=== PATIENT | male | born 1940 | race African-American/Black ===

== ENCOUNTER 2018-01-31 13:31 | Inpatient (IN) | payer MEDICARE, OTHER ==
[~2018-01-31] VITALS: Ht 180.3 cm; Wt 64.9 kg
[2018-01-31] MEDS ORDERED: IPRATROPIUM BROMIDE (0.02%) 0.5MG/2.5ML NEB HHN STA (13:43)
[2018-01-31] MEDS ORDERED: METHYLPREDNISOLONE SOD SUCC 125 MG/2 ML VIAL IV STA (13:43)
[2018-01-31] MEDS ORDERED: MAGNESIUM 2 G PREMIX 50 ML IV ONE (13:45)
[2018-01-31] MEDS: ALBUTEROL (0.083%) 2.5MG/3ML NEB HHN SCH ×4 (14:00→14:54)
[2018-01-31 14:30] LABS: BASOPHILS % 0.3 % (0.0-2.0); EOSINOPHILS % 0.2 % (0.0-5.0); LYMPHOCYTES % 10.1 % (20.0-50.0); MEAN CORPUSCULAR HEMOGLOBIN 24.3 pg (28.0-32.0); MEAN CORPUSCULAR VOLUME 79.3 fL (80.0-94.0); MEAN PLATELET VOLUME 6.8 fl (7.4-10.4); MONOCYTES % 11.3 % (2.0-8.0); NEUTROPHILS % 78.1 % (40.0-76.0); PLATELET 332 x1000/uL (130-400); RED BLOOD CELL COUNT 1.85 mill/uL (4.7-6.1); RED CELL DISTRIBUTION WIDTH 18.7 % (11.6-14.6)
[2018-01-31 14:36] LABS: PROTHROMBIN TIME 10.7 sec (9.4-11.6)
[2018-01-31 14:37] LABS: HEMOGLOBIN. 4.5 g/dL (14.0-18.0)
[2018-01-31 14:38] LABS: HEMATOCRIT. 14.7 % (42.0-52.0)
[2018-01-31 14:40] LABS: CHLORIDE 87 mEq/L (98-107)
[2018-01-31] MEDS ORDERED: SODIUM CHLORIDE 0.9% 1000ML BAG (SEPSIS BOLUS) IV ONE (15:00)
[2018-01-31 16:59] LABS: BG BILEVEL POS AIRWAY PRESSURE 15/5; BG DEOXYHEMOGLOBIN 0.3 % (0.0-5.0); BG FRACTION INSPIRED OXYGEN 50; BG HCO3 ACT 38.1 mmol/L (22.0-26.0); BG METHEMOGLOBIN 0.6 % (0.0-1.5); BG OXYGEN SATURATION 99.7 % (92.0-98.5); BG OXYHEMOGLOBIN 98.1 % (94.0-97.0); BG PCO2 67.1 mmHg (35.0-45.0); BG PH 7.372 (7.350-7.450); BG PO2 228.9 mmHg (75.0-100.0); BG SAMPLE SITE RIGHT RADIAL; BG TOTAL HEMOGLOBIN 5.1 g/dL (12.0-18.0); BG VENT MODE MASK - BIPAP; BG VENT RATE 14 set
[2018-01-31] MEDS ORDERED: MAGNESIUM/ALUMINUM HYDROXIDE/SIMETHICONE 30ML UDC PO PRN (17:00)
[2018-01-31] MEDS ORDERED: DIPHENHYDRAMINE 50MG/ML VIAL IV PRN (17:00)
[2018-01-31] MEDS ORDERED: LORAZEPAM 0.5MG TABLET PO PRN (17:00)
[2018-01-31] MEDS ORDERED: CLONIDINE 0.1MG TABLET PO PRN (17:00)
[2018-01-31] MEDS ORDERED: NITROGLYCERIN 0.4MG TABLET SL SL PRN (17:00)
[2018-01-31] MEDS ORDERED: DOCUSATE SODIUM 100MG CAPSULE PO PRN (17:00)
[2018-01-31] MEDS ORDERED: ONDANSETRON HCL 4MG/2ML VIAL IV PRN (17:00)
[2018-01-31] MEDS ORDERED: GUAIFENESIN 200MG/10ML SUGAR FREE UDC PO PRN (17:00)
[2018-01-31] MEDS ORDERED: ACETAMINOPHEN 325MG TABLET PO PRN (17:00)
[2018-01-31] MEDS ORDERED: VANCOMYCIN 1 G PREMIX 200 ML IV ONE (17:15)
[2018-01-31] MEDS ORDERED: MEROPENEM 1,000 MG in SODIUM CHLORIDE 0.9% 100 ML IV ONE (17:15)
[2018-01-31] MEDS ORDERED: TRAMADOL 50MG TABLET PO PRN (17:30)
[2018-01-31] MEDS ORDERED: MORPHINE SULFATE 4 MG/ML CPJ (NOT FOR IM USE) IV PRN (17:30)
[2018-01-31 18:42] LABS: TOTAL IRON BINDING CAPACITY 399 ug/dL (250-450)
[2018-01-31 19:17] LABS: FOLIC ACID (FOLATE) SERUM >20 ng/mL ng/mL (>5.38); VITAMIN B12 SERUM 512 pg/mL (211-911)
[2018-01-31] MEDS ORDERED: IPRATROPIUM/ALBUTEROL 0.5-3(2.5)MG/3ML NEB HHN SCH (20:45)
[2018-01-31] MEDS ORDERED: PANTOPRAZOLE SODIUM 40 MG/VIAL IV SCH (21:00)
[2018-01-31] MEDS ORDERED: NA PHOS,M-B/NA PHOS,DI-BA ENEMA 118ML PR PRN (21:00)
[2018-01-31] MEDS ORDERED: ZOLPIDEM TARTRATE 5MG TABLET PO PRN (21:00)
[2018-01-31] MEDS ORDERED: LEVOFLOXACIN 500MG PREMIX 100 ML IV SCH (21:00)
[2018-01-31] MEDS: IPRATROPIUM/ALBUTEROL 0.5-3(2.5)MG/3ML NEB INH PRN (21:50)
[2018-02-01] VITALS (15 sets, daily range): BP systolic 114–153; BP diastolic 45–87
[2018-02-01] MEDS: IPRATROPIUM/ALBUTEROL 0.5-3(2.5)MG/3ML NEB INH PRN ×2 (01:45→03:50)
[2018-02-01] MEDS ORDERED: PANTOPRAZOLE SODIUM 40 MG/VIAL IV SCH (09:00)
[2018-02-01 10:35] LABS: BG BASE EXCESS 5.7 mmol/L (-2.0-2.0); BG BILEVEL POS AIRWAY PRESSURE ST=15/5; BG CARBOXYHEMOGLOBIN 0.7 % (0.5-1.5); BG DEOXYHEMOGLOBIN 0.4 % (0.0-5.0); BG FRACTION INSPIRED OXYGEN 50; BG HCO3 ACT 33.1 mmol/L (22.0-26.0); BG METHEMOGLOBIN 0.3 % (0.0-1.5); BG OXYGEN SATURATION 99.6 % (92.0-98.5); BG OXYHEMOGLOBIN 98.6 % (94.0-97.0); BG PH 7.287 (7.350-7.450); BG PO2 252.6 mmHg (75.0-100.0); BG PRESSURE SUPPORT 10; BG SAMPLE SITE RIGHT BRACHIAL; BG TOTAL HEMOGLOBIN 7.1 g/dL (12.0-18.0); BG VENT MODE MASK - BIPAP; BG VENT RATE 14 set
[2018-02-01] MEDS ORDERED: IPRATROPIUM/ALBUTEROL 0.5-3(2.5)MG/3ML NEB HHN PRN (10:45)
[2018-02-01] MEDS ORDERED: BUDESONIDE 0.5MG/2ML NEB HHN SCH (11:00)
[2018-02-01] MEDS ORDERED: MOME13HF2 INH (11:12)
[2018-02-01] MEDS ORDERED: ALBU18HF2 IH (11:12)
[2018-02-01] MEDS ORDERED: TIOT18CA3 INH (11:12)
[2018-02-01] MEDS: METHYLPREDNISOLONE SOD SUCC 40 MG/ML VIAL IV SCH ×2 (11:40→18:28)
[2018-02-01] MEDS ORDERED: MULTIVITAMINS,THER W-MINERALS TABLET PO SCH (12:00)
[2018-02-01] MEDS ORDERED: CEFTRIAXONE 1 G PREMIX 50 ML IV SCH (12:00)
[2018-02-01] MEDS ORDERED: FOLIC ACID 1MG TABLET PO SCH (12:00)
[2018-02-01] MEDS ORDERED: THIAMINE HCL 100MG TABLET PO SCH (12:00)
[2018-02-01] MEDS: IPRATROPIUM/ALBUTEROL 0.5-3(2.5)MG/3ML NEB HHN SCH ×3 (12:30→21:16)
[2018-02-01 12:31] LABS: MEAN CORPUSCULAR HEMOGLOBIN 26.7 pg (28.0-32.0); MEAN CORPUSCULAR VOLUME 81.8 fL (80.0-94.0); MEAN PLATELET VOLUME 6.6 fl (7.4-10.4); PLATELET 276 x1000/uL (130-400); RED BLOOD CELL COUNT 2.56 mill/uL (4.7-6.1); RED CELL DISTRIBUTION WIDTH 17.6 % (11.6-14.6)
[2018-02-01 12:53] LABS: CHLORIDE 93 mEq/L (98-107); HEMOGLOBIN. 6.8 g/dL (14.0-18.0)
[2018-02-01 14:51] LABS: PLATELET ESTIMATE NORMAL
[2018-02-01] MEDS ORDERED: PNEUMOCOCCAL 23-VAL P-SAC VAC 0.5 ML IM ONE (18:00)
[2018-02-01] MEDS ORDERED: PANTOPRAZOLE 40MG DR TABLET PO SCH (21:00)
[2018-02-01] MEDS: METOPROLOL TARTRATE 25MG TABLET PO SCH ×2 (21:15→21:26)
[2018-02-01] MEDS ORDERED: LEVOFLOXACIN 500MG PREMIX 100 ML IV SCH (22:00)
[2018-02-01 22:08] LABS: HEMATOCRIT 22.9 % (42.0-52.0); HEMOGLOBIN 7.7 g/dL (14.0-18.0)
[2018-02-02 13:59] LABS: HEMATOCRIT. 20.9 % (42.0-52.0)
== END 2018-02-01 22:25 | disposition short-term general hospital (02) | DRG 871 ==
LOC: ER 14:43 → 5EST 14:59 → EDBEDREQSVC 15:01 → EDBEDREQTM 15:01 → EDBEDREQ 15:01 → ENRESERV 02-01 07:48
PROVIDERS: ADMIT Internal Medicine; ATTEND Internal Medicine
PROC: 30233N1 Transfusion of Nonautologous Red Blood Cells into Peripheral Vein, Percutaneous Approach (ICD-10-PCS; principal; 2018-01-31)
PROC: 5A09357 Assistance with Respiratory Ventilation, Less than 24 Consecutive Hours, Continuous Positive Airway Pressure (ICD-10-PCS; 2018-01-31)
DX: A41.9 Sepsis, unspecified organism (principal); J96.02 Acute respiratory failure with hypercapnia; J96.01 Acute respiratory failure with hypoxia; G92 Toxic encephalopathy; E87.1 Hypo-osmolality and hyponatremia; J44.1 Chronic obstructive pulmonary disease with (acute) exacerbation; D64.9 Anemia, unspecified; F10.10 Alcohol abuse, uncomplicated; I25.2 Old myocardial infarction; Z86.73 Personal history of transient ischemic attack (TIA), and cerebral infarction without residual deficits; Z87.891 Personal history of nicotine dependence; Z99.81 Dependence on supplemental oxygen
CPT/HCPCS: 36415; 36430; 36600; 70450; 71045; 80048; 80053; 82375; 82607; 82746; 82805; 83540; 83550; 83605; 83690; 83880; 84484; 85014; 85018; 85025; 85610; 86850; 86900; 86920; 87040; 87086; 90732; 93005; 93970; 96365; 96366; 96367; 96368; 96376; 99291; J0696; J1956; J2185; J2920; J2930; J3370; J3475; J7030; J7050; J7611; J7620; J7626; P9016; A4315

== ENCOUNTER 2019-04-03 21:59 | Inpatient (IN) | payer OTHER ==
[~2019-04-03] VITALS: Ht 175.3 cm; Wt 66.3 kg
[2019-04-03] MEDS ORDERED: METHYLPREDNISOLONE SOD SUCC 125 MG/2 ML VIAL IV STA (22:39)
[2019-04-03] MEDS ORDERED: IPRATROPIUM BROMIDE (0.02%) 0.5MG/2.5ML NEB HHN STA (22:39)
[2019-04-03] MEDS ORDERED: ONDANSETRON HCL 4MG/2ML INJ IV STA (22:39)
[2019-04-03] MEDS: ALBUTEROL (0.083%) 2.5MG/3ML NEB HHN SCH ×2 (23:00→23:25)
[2019-04-03 23:07] LABS: HEMATOCRIT. 35.7 % (42.0-52.0); HEMOGLOBIN. 12.1 g/dL (14.0-18.0); MEAN CORPUSCULAR HEMOGLOBIN 31.7 pg (28.0-32.0); MEAN CORPUSCULAR VOLUME 93.5 fL (80.0-94.0); MEAN PLATELET VOLUME 7.1 fl (7.4-10.4); PLATELET 287 x1000/uL (130-400); RED BLOOD CELL COUNT 3.82 mill/uL (4.7-6.1); RED CELL DISTRIBUTION WIDTH 13.7 % (11.6-14.6)
[2019-04-03 23:08] LABS: BG BASE EXCESS 9.4 mmol/L (-2.0-2.0); BG CARBOXYHEMOGLOBIN 1.1 % (0.5-1.5); BG DEOXYHEMOGLOBIN 0.2 % (0.0-5.0); BG FRACTION INSPIRED OXYGEN 100; BG HCO3 ACT 36.7 mmol/L (22.0-26.0); BG METHEMOGLOBIN 0.4 % (0.0-1.5); BG OXYGEN SATURATION 99.8 % (92.0-98.5); BG OXYHEMOGLOBIN 98.3 % (94.0-97.0); BG PCO2 63.4 mmHg (35.0-45.0); BG PH 7.381 (7.350-7.450); BG SAMPLE SITE RIGHT RADIAL; BG TOTAL HEMOGLOBIN 12.8 g/dL (12.0-18.0); BG VENT MODE MASK - NRB
[2019-04-03 23:12] LABS: CHLORIDE 83 mEq/L (98-107)
[2019-04-03] MEDS ORDERED: SODIUM CHLORIDE 0.9% 1,000 ML IV ONE (23:13)
[2019-04-03 23:19] LABS: PLATELET ESTIMATE NORMAL
[2019-04-03] MEDS ORDERED: AZITHROMYCIN 500 MG in DEXT 5% WATER 250 ML IV ONE (23:45)
[2019-04-03] MEDS ORDERED: CEFTRIAXONE 1 G PREMIX 50 ML IV ONE (23:45)
[2019-04-04] VITALS (13 sets, daily range): BP systolic 108–147; BP diastolic 56–99
[2019-04-04] MEDS ORDERED: SODIUM CHLORIDE 0.9% 1,000 ML IV SCH (00:12)
[2019-04-04] MEDS ORDERED: SODIUM CHLORIDE 0.9% 1,000 ML IV NR (01:47)
[2019-04-04] MEDS ORDERED: NA PHOS,M-B/NA PHOS,DI-BA ENEMA 118ML PR PRN (06:30)
[2019-04-04] MEDS ORDERED: MAGNESIUM/ALUMINUM HYDROXIDE/SIMETHICONE 30ML UDC PO PRN (06:30)
[2019-04-04] MEDS ORDERED: HYDROCODONE/ACETAMINOPHEN 10/325MG TABLET PO PRN (06:30)
[2019-04-04] MEDS ORDERED: CLONIDINE 0.1MG TABLET PO PRN (06:30)
[2019-04-04] MEDS ORDERED: ACETAMINOPHEN 325MG TABLET PO PRN (06:30)
[2019-04-04] MEDS ORDERED: HYDROMORPHONE HCL/PF 2MG/ML CPJ IV PRN (06:30)
[2019-04-04] MEDS ORDERED: DIPHENHYDRAMINE 50MG/ML VIAL IV PRN (06:30)
[2019-04-04] MEDS ORDERED: HYDRALAZINE 20MG/ML VIAL IV PRN (06:30)
[2019-04-04] MEDS ORDERED: ONDANSETRON HCL 4MG/2ML INJ IV PRN (06:30)
[2019-04-04] MEDS ORDERED: IPRATROPIUM/ALBUTEROL 0.5-3(2.5)MG/3ML NEB INH PRN ×2 (06:30)
[2019-04-04] MEDS ORDERED: LORAZEPAM 2MG/ML CPJ IV PRN (06:30)
[2019-04-04] MEDS ORDERED: DOCUSATE SODIUM 100MG CAPSULE PO PRN (06:30)
[2019-04-04] MEDS ORDERED: DILTIAZEM HCL 125 MG in DEXT 5% WATER 100 ML IV SCH (07:58)
[2019-04-04] MEDS ORDERED: DIGOXIN 500MCG/2ML AMP IV SCH (08:00)
[2019-04-04] MEDS ORDERED: IPRATROPIUM/ALBUTEROL 0.5-3(2.5)MG/3ML NEB INH SCH (08:00)
[2019-04-04] MEDS ORDERED: ENOXAPARIN 40MG/0.4ML SYR SUBCUT SCH (09:00)
[2019-04-04 09:30] LABS: HEMATOCRIT. 33.9 % (42.0-52.0); HEMOGLOBIN. 11.2 g/dL (14.0-18.0); MEAN CORPUSCULAR HEMOGLOBIN 31.2 pg (28.0-32.0); MEAN CORPUSCULAR VOLUME 93.9 fL (80.0-94.0); MEAN PLATELET VOLUME 7.4 fl (7.4-10.4); PLATELET 265 x1000/uL (130-400); RED BLOOD CELL COUNT 3.61 mill/uL (4.7-6.1); RED CELL DISTRIBUTION WIDTH 13.4 % (11.6-14.6)
[2019-04-04 09:43] LABS: CHLORIDE 90 mEq/L (98-107)
[2019-04-04 09:49] LABS: BG BASE EXCESS 2.4 mmol/L (-2.0-2.0); BG CARBOXYHEMOGLOBIN 0.7 % (0.5-1.5); BG DEOXYHEMOGLOBIN 3.2 % (0.0-5.0); BG FRACTION INSPIRED OXYGEN 32; BG HCO3 ACT 29.3 mmol/L (22.0-26.0); BG METHEMOGLOBIN 0.3 % (0.0-1.5); BG OXYGEN SATURATION 96.8 % (92.0-98.5); BG OXYHEMOGLOBIN 95.8 % (94.0-97.0); BG PCO2 56.2 mmHg (35.0-45.0); BG PH 7.335 (7.350-7.450); BG SAMPLE SITE RIGHT RADIAL; BG VENT MODE NASAL CANNULA
[2019-04-04 09:53] LABS: LDL CHOLESTEROL 24 mg/dL (5-100)
[2019-04-04] MEDS: ASPIRIN 81MG TABLET PO SCH (09:54)
[2019-04-04 09:56] LABS: T4 FREE 1.36 ng/dL (0.76-1.46)
[2019-04-04] MEDS: DILTIAZEM HCL 125 MG in DEXTROSE 5% WATER 125 ML IV SCH (09:56)
[2019-04-04] MEDS: ENOXAPARIN 80MG/0.8ML SYR SUBCUT SCH ×2 (09:56→21:22)
[2019-04-04 09:57] LABS: HDL CHOLESTEROL 86 mg/dL (40-59)
[2019-04-04] MEDS: LEVOFLOXACIN 500MG PREMIX 100 ML IV SCH (09:57)
[2019-04-04 10:36] LABS: PLATELET ESTIMATE NORMAL
[2019-04-04] MEDS ORDERED: FLUT1DIS2 INH (12:25)
[2019-04-04] MEDS ORDERED: METO25TA6 MT (12:25)
[2019-04-04] MEDS ORDERED: ALBU18HF2 IH (12:25)
[2019-04-04] MEDS ORDERED: ALBU4TAB6 MT (12:25)
[2019-04-04] MEDS ORDERED: TIOT18CA3 INH (12:25)
[2019-04-04] MEDS ORDERED: BENZONATATE 100MG CAPSULE PO PRN (13:30)
[2019-04-04] MEDS: PREDNISONE 20MG TABLET PO SCH (13:30)
[2019-04-04] MEDS: SODIUM CHLORIDE 0.9% INJ 3ML FLUSH IVF SCH ×2 (13:35→21:22)
[2019-04-04] MEDS: BUDESONIDE 0.5MG/2ML NEB HHN SCH (15:21)
[2019-04-04] MEDS: IPRATROPIUM BROMIDE (0.02%) 0.5MG/2.5ML NEB HHN SCH ×2 (15:22→20:49)
[2019-04-04] MEDS: GUAIFENESIN 200MG/10ML SUGAR FREE UDC PO PRN (18:53)
[2019-04-05] VITALS (12 sets, daily range): BP systolic 121–163; BP diastolic 56–91
[2019-04-05] MEDS: BUDESONIDE 0.5MG/2ML NEB HHN SCH ×2 (00:34→08:16)
[2019-04-05] MEDS: IPRATROPIUM BROMIDE (0.02%) 0.5MG/2.5ML NEB HHN SCH ×5 (00:34→15:35)
[2019-04-05 05:05] LABS: CREATINE KINASE 73 IU/L (39-308); CREATINE KINASE MB FRACTION 3.8 ng/mL (0.5-3.6)
[2019-04-05] MEDS: SODIUM CHLORIDE 0.9% INJ 3ML FLUSH IVF SCH ×2 (06:03→14:00)
[2019-04-05] MEDS: GUAIFENESIN 200MG/10ML SUGAR FREE UDC PO PRN (06:47)
[2019-04-05] MEDS: DILTIAZEM HCL 125 MG in DEXTROSE 5% WATER 125 ML IV SCH (07:01)
[2019-04-05] MEDS: ASPIRIN 81MG TABLET PO SCH (08:31)
[2019-04-05] MEDS: PREDNISONE 20MG TABLET PO SCH (08:31)
[2019-04-05] MEDS: LEVOFLOXACIN 500MG PREMIX 100 ML IV SCH (08:31)
[2019-04-05] MEDS: ENOXAPARIN 80MG/0.8ML SYR SUBCUT SCH (08:32)
[2019-04-05] MEDS ORDERED: METOPROLOL TARTRATE 50MG TABLET PO SCH (09:00)
[2019-04-05 12:34] LABS: HEMATOCRIT. 33.1 % (42.0-52.0); HEMOGLOBIN. 10.9 g/dL (14.0-18.0); MEAN CORPUSCULAR VOLUME 94.6 fL (80.0-94.0); MEAN PLATELET VOLUME 7.1 fl (7.4-10.4); PLATELET 303 x1000/uL (130-400); RED CELL DISTRIBUTION WIDTH 13.4 % (11.6-14.6)
[2019-04-05 12:44] LABS: CHLORIDE 86 mEq/L (98-107)
[2019-04-05 13:09] LABS: PLATELET ESTIMATE NORMAL
== END 2019-04-05 20:22 | disposition short-term general hospital (02) | DRG 189 ==
LOC: ER 21:59 → 3WST 04-04 00:13 → EDBEDREQTM 04-04 00:29 → EDBEDREQSVC 04-04 00:29 → EDBEDREQ 04-04 00:29 → EDBEDREQDT 04-04 00:29 → ENRESERV 04-04 01:57
PROVIDERS: ADMIT Internal Medicine; ATTEND Internal Medicine
PROC: 5A09357 Assistance with Respiratory Ventilation, Less than 24 Consecutive Hours, Continuous Positive Airway Pressure (ICD-10-PCS; principal; 2019-04-04)
DX: J96.02 Acute respiratory failure with hypercapnia (principal); E87.1 Hypo-osmolality and hyponatremia; E87.2 Acidosis; J44.1 Chronic obstructive pulmonary disease with (acute) exacerbation; R65.10 Systemic inflammatory response syndrome (SIRS) of non-infectious origin without acute organ dysfunction; I48.91 Unspecified atrial fibrillation; F17.210 Nicotine dependence, cigarettes, uncomplicated; I25.10 Atherosclerotic heart disease of native coronary artery without angina pectoris; Z79.899 Other long term (current) drug therapy; I25.2 Old myocardial infarction
CPT/HCPCS: 36415; 36600; 71045; 78580; 80048; 80061; 82375; 82550; 82553; 82805; 82962; 83036; 83605; 83880; 84439; 84443; 84484; 85379; 93005; 93306; 94640; 94660; 96365; 96375; 99291; J0456; J0696; J1160; J1650; J1956; J2405; J2930; J3490; J7030; J7040; J7060; J7512; J7611; J7626

== ENCOUNTER 2019-10-26 22:58 | Inpatient (IN) | payer OTHER ==
[~2019-10-26] VITALS: Ht 167.6 cm; Wt 90.3 kg
[~2019-10-26 22:58] MED LIST: ALBU18HF2 IH; ALBU4TAB6 MT; FLUT1DIS2 INH; METO25TA6 MT; TIOT18CA3 INH
[2019-10-26 23:19] LABS: BG BASE EXCESS 9.7 mmol/L (-2.0-2.0); BG CARBOXYHEMOGLOBIN 0.4 % (0.5-1.5); BG DEOXYHEMOGLOBIN 2.1 % (0.0-5.0); BG FRACTION INSPIRED OXYGEN 100; BG METHEMOGLOBIN 0.4 % (0.0-1.5); BG OXYGEN SATURATION 97.9 % (92.0-98.5); BG OXYHEMOGLOBIN 97.1 % (94.0-97.0); BG PCO2 152.3 mmHg (35.0-45.0); BG PH 7.069 (7.350-7.450); BG PO2 145.9 mmHg (75.0-100.0); BG SAMPLE SITE RIGHT RADIAL; BG TOTAL HEMOGLOBIN 9.5 g/dL (12.0-18.0); BG VENT MODE AMBU BAG
[2019-10-26 23:21] LABS: BASOPHILS % 0.5 % (0.0-2.0); EOSINOPHILS % 1.2 % (0.0-5.0); HEMATOCRIT. 27.5 % (42.0-52.0); HEMOGLOBIN. 8.4 g/dL (14.0-18.0); LYMPHOCYTES % 19.1 % (20.0-50.0); MEAN CORPUSCULAR VOLUME 88.2 fL (80.0-94.0); MONOCYTES % 10.9 % (2.0-8.0); NEUTROPHILS % 68.3 % (40.0-76.0); PLATELET 423 x1000/uL (130-400); RED BLOOD CELL COUNT 3.12 mill/uL (4.7-6.1); RED CELL DISTRIBUTION WIDTH 15.8 % (11.6-14.6)
[2019-10-26 23:23] LABS: CHLORIDE 85 mEq/L (98-107)
[2019-10-26 23:26] LABS: PROTHROMBIN TIME 9.9 sec (9.6-11.0)
[2019-10-26 23:27] LABS: ETHANOL BLOOD < 10 mg/dL
[2019-10-26] MEDS ORDERED: ALBUTEROL (0.083%) 2.5MG/3ML NEB HHN STA (23:36)
[2019-10-26] MEDS ORDERED: METHYLPREDNISOLONE SOD SUCC 125 MG/2 ML VIAL IV STA (23:36)
[2019-10-26] MEDS ORDERED: LORAZEPAM 2MG/ML CPJ IV ONE (23:45)
[2019-10-26] MEDS ORDERED: PROPOFOL 10MG/ML 100ML 100 ML IV SCH (23:45)
[2019-10-26 23:55] LABS: CLARITY URINE CLOUDY (CLEAR); COLOR URINE YELLOW (YELLOW); KETONES URINE NEGATIVE (NEGATIVE); LEUKOCYTE ESTERASE URINE NEGATIVE (NEGATIVE); NITRITE URINE NEGATIVE (NEGATIVE); OCCULT BLOOD URINE 1+ (NEGATIVE); PH URINE 5.5 (4.5-8.0); PROTEIN URINE 2+ (NEGATIVE); SPECIFIC GRAVITY URINE 1.016 (1.005-1.030); UROBILINOGEN URINE 0.2 E.U./dL (0.2-1.0)
[2019-10-27] VITALS (65 sets, daily range): BP systolic 84–135; BP diastolic 51–83
[2019-10-27 00:08] LABS: *AMPHETAMINES SCREEN URINE NEGATIVE (NEGATIVE); *BARBITURATES SCREEN URINE NEGATIVE (NEGATIVE); *BENZODIAZEPINES SCREEN URINE NEGATIVE (NEGATIVE); *COCAINE SCREEN URINE NEGATIVE (NEGATIVE); METHADONE URINE SCREEN NEGATIVE (NEGATIVE); OPIATES URINE SCREEN NEGATIVE (NEGATIVE)
[2019-10-27 00:09] LABS: CANNABINOID URINE SCREEN NEGATIVE (NEGATIVE); PHENCYCLIDINE URINE SCREEN NEGATIVE (NEGATIVE)
[2019-10-27] MEDS ORDERED: SODIUM CHLORIDE 0.9% 1,000 ML IV ONE (00:15)
[2019-10-27] MEDS ORDERED: MIDAZOLAM HCL 50 MG in DEXTROSE 5% WATER 40 ML IV ONE ×4 (00:15)
[2019-10-27] MEDS ORDERED: LORAZEPAM 2MG/ML CPJ IV ONE (00:15)
[2019-10-27] MEDS ORDERED: FENTANYL CITRATE/PF 500 MCG in SODIUM CHLORIDE 0.9% 40 ML IV PRN ×4 (00:15)
[2019-10-27] MEDS ORDERED: LEVOFLOXACIN 750MG PREMIX 150 ML IV ONE (01:00)
[2019-10-27] MEDS ORDERED: SODIUM CHLORIDE 0.9% 1000ML BAG (SEPSIS BOLUS) IV ONE (01:00)
[2019-10-27 01:55] LABS: BG CARBOXYHEMOGLOBIN 0.3 % (0.5-1.5); BG DEOXYHEMOGLOBIN 0.3 % (0.0-5.0); BG FRACTION INSPIRED OXYGEN 100; BG HCO3 ACT 37.1 mmol/L (22.0-26.0); BG METHEMOGLOBIN 0.1 % (0.0-1.5); BG OXYGEN SATURATION 99.7 % (92.0-98.5); BG OXYHEMOGLOBIN 99.3 % (94.0-97.0); BG PCO2 58.9 mmHg (35.0-45.0); BG PH 7.417 (7.350-7.450); BG PO2 294.3 mmHg (75.0-100.0); BG SAMPLE SITE LEFT RADIAL; BG TIDAL VOLUME(mL) 500 mL; BG VENT MODE VENT - A/C; BG VENT RATE 20 set
[2019-10-27] MEDS ORDERED: DIPHENHYDRAMINE 50MG/ML VIAL IV PRN (04:30)
[2019-10-27] MEDS ORDERED: LORAZEPAM 2MG/ML CPJ IV PRN (04:30)
[2019-10-27] MEDS ORDERED: ONDANSETRON HCL 4MG/2ML INJ IV PRN (04:30)
[2019-10-27] MEDS ORDERED: ACETAMINOPHEN 650MG SUPP PR PRN (04:30)
[2019-10-27] MEDS ORDERED: SODIUM CHLORIDE 0.9% 1,000 ML IV SCH (08:30)
[2019-10-27] MEDS: PROPOFOL 10MG/ML 100ML 100 ML IV PRN ×3 (08:53→22:26)
[2019-10-27 09:11] LABS: BG BASE EXCESS 8.9 mmol/L (-2.0-2.0); BG CARBOXYHEMOGLOBIN 0.2 % (0.5-1.5); BG DEOXYHEMOGLOBIN 0.2 % (0.0-5.0); BG FRACTION INSPIRED OXYGEN 70; BG HCO3 ACT 34.2 mmol/L (22.0-26.0); BG METHEMOGLOBIN 0.4 % (0.0-1.5); BG OXYGEN SATURATION 99.8 % (92.0-98.5); BG OXYHEMOGLOBIN 99.2 % (94.0-97.0); BG PCO2 52.3 mmHg (35.0-45.0); BG PH 7.434 (7.350-7.450); BG PO2 382.9 mmHg (75.0-100.0); BG SAMPLE SITE RIGHT RADIAL; BG TIDAL VOLUME(mL) 500 mL; BG TOTAL HEMOGLOBIN 8.6 g/dL (12.0-18.0); BG VENT MODE VENT - A/C; BG VENT RATE 18 set
[2019-10-27] MEDS: METHYLPREDNISOLONE SOD SUCC 125 MG/2 ML VIAL IV SCH ×3 (09:58→21:10)
[2019-10-27] MEDS: FAMOTIDINE 20MG/2ML VIAL IV SCH ×2 (09:58→21:10)
[2019-10-27] MEDS: ENOXAPARIN 40MG/0.4ML SYR SUBCUT SCH (09:59)
[2019-10-27] MEDS: SODIUM CHLORIDE 0.9% 1,000 ML IV SCH ×2 (11:03→23:45)
[2019-10-27] MEDS ORDERED: IPRATROPIUM/ALBUTEROL 0.5-3(2.5)MG/3ML NEB HHN PRN (11:45)
[2019-10-27] MEDS: CEFTRIAXONE 1 G PREMIX 50 ML IV SCH (13:57)
[2019-10-27] MEDS: AZITHROMYCIN 500 MG in DEXT 5% WATER 250 ML IV SCH (13:57)
[2019-10-27 15:54] LABS: T4 FREE 1.09 ng/dL (0.76-1.46)
[2019-10-27 15:57] LABS: CREATINE KINASE MB FRACTION 3.8 ng/mL (0.5-3.6)
[2019-10-27] MEDS: IPRATROPIUM BROMIDE (0.02%) 0.5MG/2.5ML NEB HHN SCH ×2 (16:16→20:40)
[2019-10-28] VITALS (91 sets, daily range): BP systolic 87–160; BP diastolic 41–103
[2019-10-28] MEDS: IPRATROPIUM BROMIDE (0.02%) 0.5MG/2.5ML NEB HHN SCH ×6 (00:24→20:34)
[2019-10-28 01:04] LABS: CREATINE KINASE MB FRACTION 3.4 ng/mL (0.5-3.6)
[2019-10-28] MEDS: PROPOFOL 10MG/ML 100ML 100 ML IV PRN ×4 (04:50→21:45)
[2019-10-28] MEDS: METHYLPREDNISOLONE SOD SUCC 125 MG/2 ML VIAL IV SCH ×3 (05:08→22:10)
[2019-10-28 06:15] LABS: CREATINE KINASE MB FRACTION 2.6 ng/mL (0.5-3.6)
[2019-10-28] MEDS ORDERED: PNEUMOCOCCAL 23-VAL P-SAC VAC 0.5 ML IM ONE (09:00)
[2019-10-28] MEDS: ENOXAPARIN 40MG/0.4ML SYR SUBCUT SCH (09:20)
[2019-10-28] MEDS: FAMOTIDINE 20MG/2ML VIAL IV SCH ×2 (09:20→22:10)
[2019-10-28 11:56] LABS: HEMATOCRIT. 26.9 % (42.0-52.0); HEMOGLOBIN. 8.5 g/dL (14.0-18.0); MEAN CORPUSCULAR HEMOGLOBIN 27.5 pg (28.0-32.0); MEAN CORPUSCULAR VOLUME 86.7 fL (80.0-94.0); MEAN PLATELET VOLUME 7.3 fl (7.4-10.4); PLATELET 362 x1000/uL (130-400); RED CELL DISTRIBUTION WIDTH 16.2 % (11.6-14.6)
[2019-10-28] MEDS: AZITHROMYCIN 500 MG in DEXT 5% WATER 250 ML IV SCH (12:12)
[2019-10-28 12:27] LABS: PLATELET ESTIMATE NORMAL
[2019-10-28] MEDS: CEFTRIAXONE 1 G PREMIX 50 ML IV SCH (13:42)
[2019-10-28] MEDS: SODIUM CHLORIDE 0.9% 1,000 ML IV SCH (13:42)
[2019-10-29] VITALS (91 sets, daily range): BP systolic 100–161; BP diastolic 59–93
[2019-10-29] MEDS: IPRATROPIUM BROMIDE (0.02%) 0.5MG/2.5ML NEB HHN SCH ×6 (00:38→20:15)
[2019-10-29] MEDS: SODIUM CHLORIDE 0.9% 1,000 ML IV SCH ×2 (02:42→17:13)
[2019-10-29] MEDS: PROPOFOL 10MG/ML 100ML 100 ML IV PRN ×4 (04:38→22:52)
[2019-10-29] MEDS: METHYLPREDNISOLONE SOD SUCC 125 MG/2 ML VIAL IV SCH ×3 (05:51→21:48)
[2019-10-29 07:42] LABS: BG BASE EXCESS 7.4 mmol/L (-2.0-2.0); BG CARBOXYHEMOGLOBIN 0.1 % (0.5-1.5); BG DEOXYHEMOGLOBIN 0.9 % (0.0-5.0); BG HCO3 ACT 33.3 mmol/L (22.0-26.0); BG METHEMOGLOBIN 0.1 % (0.0-1.5); BG OXYGEN SATURATION 99.1 % (92.0-98.5); BG OXYHEMOGLOBIN 98.9 % (94.0-97.0); BG PCO2 55.5 mmHg (35.0-45.0); BG PH 7.396 (7.350-7.450); BG PO2 150.7 mmHg (75.0-100.0); BG SAMPLE SITE RIGHT RADIAL; BG TIDAL VOLUME(mL) 500 mL; BG TOTAL HEMOGLOBIN 8.7 g/dL (12.0-18.0); BG VENT MODE VENT - A/C; BG VENT RATE 16 set
[2019-10-29] MEDS: ENOXAPARIN 40MG/0.4ML SYR SUBCUT SCH (08:29)
[2019-10-29] MEDS: FAMOTIDINE 20MG/2ML VIAL IV SCH ×2 (08:29→21:48)
[2019-10-29 13:45] LABS: BG BASE EXCESS 4.6 mmol/L (-2.0-2.0); BG CARBOXYHEMOGLOBIN 0.3 % (0.5-1.5); BG DEOXYHEMOGLOBIN 2.1 % (0.0-5.0); BG FRACTION INSPIRED OXYGEN 40; BG METHEMOGLOBIN 0.4 % (0.0-1.5); BG OXYGEN SATURATION 97.9 % (92.0-98.5); BG OXYHEMOGLOBIN 97.2 % (94.0-97.0); BG PCO2 74.8 mmHg (35.0-45.0); BG PH 7.263 (7.350-7.450); BG PO2 118.5 mmHg (75.0-100.0); BG PRESSURE SUPPORT 10; BG SAMPLE SITE RIGHT RADIAL; BG TIDAL VOLUME(mL) 500 mL; BG TOTAL HEMOGLOBIN 9.5 g/dL (12.0-18.0); BG VENT MODE VENT - SIMV; BG VENT RATE 10 set
[2019-10-29] MEDS: AZITHROMYCIN 500 MG in DEXT 5% WATER 250 ML IV SCH (13:48)
[2019-10-29] MEDS: CEFTRIAXONE 1 G PREMIX 50 ML IV SCH (15:02)
[2019-10-30] VITALS (84 sets, daily range): BP systolic 109–167; BP diastolic 64–93
[2019-10-30] MEDS: IPRATROPIUM BROMIDE (0.02%) 0.5MG/2.5ML NEB HHN SCH ×6 (00:04→20:28)
[2019-10-30] MEDS: PROPOFOL 10MG/ML 100ML 100 ML IV PRN ×2 (03:46→17:44)
[2019-10-30] MEDS: METHYLPREDNISOLONE SOD SUCC 125 MG/2 ML VIAL IV SCH ×3 (06:31→21:26)
[2019-10-30] MEDS: FAMOTIDINE 20MG/2ML VIAL IV SCH ×2 (09:42→21:26)
[2019-10-30] MEDS: ENOXAPARIN 40MG/0.4ML SYR SUBCUT SCH (09:43)
[2019-10-30] MEDS: SODIUM CHLORIDE 0.9% 1,000 ML IV SCH ×2 (09:43→21:26)
[2019-10-30 10:24] LABS: CHLORIDE 102 mEq/L (98-107)
[2019-10-30 10:27] LABS: HEMATOCRIT 27.9 % (42.0-52.0); HEMOGLOBIN 8.7 g/dL (14.0-18.0); MEAN CORPUSCULAR HEMOGLOBIN 27.1 pg (28.0-32.0); MEAN CORPUSCULAR VOLUME 87.4 fL (80.0-94.0); PLATELET 308 x1000/uL (130-400); RED CELL DISTRIBUTION WIDTH 16.5 % (11.6-14.6)
[2019-10-30 10:29] LABS: PHOSPHORUS 3.6 mg/dL (2.5-4.9)
[2019-10-30] MEDS ORDERED: MORPHINE SULFATE 2 MG/ML CPJ (NOT FOR IM USE) IV PRN (11:15)
[2019-10-30] MEDS ORDERED: TERBUTALINE SULFATE 1MG/ML VIAL SUBCUT NR (11:31)
[2019-10-30] MEDS: AZITHROMYCIN 500 MG in DEXT 5% WATER 250 ML IV SCH (13:13)
[2019-10-30 13:56] LABS: BG BASE EXCESS 8.2 mmol/L (-2.0-2.0); BG DEOXYHEMOGLOBIN 3.3 % (0.0-5.0); BG FRACTION INSPIRED OXYGEN 40; BG HCO3 ACT 37.7 mmol/L (22.0-26.0); BG METHEMOGLOBIN 0.1 % (0.0-1.5); BG OXYGEN SATURATION 96.7 % (92.0-98.5); BG OXYHEMOGLOBIN 96.6 % (94.0-97.0); BG PCO2 88.3 mmHg (35.0-45.0); BG PH 7.248 (7.350-7.450); BG PO2 102.9 mmHg (75.0-100.0); BG PRESSURE SUPPORT 12; BG SAMPLE SITE RIGHT RADIAL; BG TIDAL VOLUME(mL) 500 mL; BG VENT MODE VENT - SIMV; BG VENT RATE 10 set
[2019-10-30] MEDS: CEFTRIAXONE 1 G PREMIX 50 ML IV SCH (14:42)
[2019-10-30] MEDS ORDERED: BISACODYL 10MG SUPP PR PRN (15:30)
[2019-10-30] MEDS ORDERED: DOCUSATE SODIUM SUGAR FREE 100MG/10ML UDC NG SCH (16:00)
[2019-10-30 23:15] LABS: BG BASE EXCESS 9.3 mmol/L (-2.0-2.0); BG CARBOXYHEMOGLOBIN 0.2 % (0.5-1.5); BG DEOXYHEMOGLOBIN 1.4 % (0.0-5.0); BG FRACTION INSPIRED OXYGEN 40; BG METHEMOGLOBIN 0.4 % (0.0-1.5); BG OXYGEN SATURATION 98.6 % (92.0-98.5); BG PH 7.368 (7.350-7.450); BG SAMPLE SITE RIGHT RADIAL; BG TIDAL VOLUME(mL) 500 mL; BG TOTAL HEMOGLOBIN 8.8 g/dL (12.0-18.0); BG VENT MODE VENT - A/C; BG VENT RATE 16 set
[2019-10-31] VITALS (10 sets, daily range): BP systolic 130–153; BP diastolic 68–116
[2019-10-31] MEDS: IPRATROPIUM BROMIDE (0.02%) 0.5MG/2.5ML NEB HHN SCH ×2 (00:49→08:01)
[2019-10-31] MEDS: PROPOFOL 10MG/ML 100ML 100 ML IV PRN ×2 (01:03→08:40)
[2019-10-31 09:22] LABS: BG BASE EXCESS 6.4 mmol/L (-2.0-2.0); BG CARBOXYHEMOGLOBIN 0.6 % (0.5-1.5); BG DEOXYHEMOGLOBIN 0.7 % (0.0-5.0); BG FRACTION INSPIRED OXYGEN 40; BG HCO3 ACT 32.1 mmol/L (22.0-26.0); BG METHEMOGLOBIN 0.3 % (0.0-1.5); BG OXYGEN SATURATION 99.3 % (92.0-98.5); BG OXYHEMOGLOBIN 98.4 % (94.0-97.0); BG PCO2 53.7 mmHg (35.0-45.0); BG PH 7.395 (7.350-7.450); BG PO2 158.3 mmHg (75.0-100.0); BG SAMPLE SITE RIGHT RADIAL; BG TIDAL VOLUME(mL) 500 mL; BG TOTAL HEMOGLOBIN 8.7 g/dL (12.0-18.0); BG VENT MODE VENT - A/C; BG VENT RATE 16 set
== END 2019-10-31 10:31 | disposition short-term general hospital (02) | DRG 870 ==
LOC: ER 22:58 → MICUSO 10-27 00:44 → EDBEDREQDT 10-27 00:56 → EDBEDREQSVC 10-27 00:58 → EDBEDREQ 10-27 00:58 → EDBEDREQTM 10-27 00:58 → EDBEDREQ 10-27 01:00 → ENRESERV 10-27 07:02 → MICUSO 10-27 08:10 → UNDOADMIN 10-27 08:10
PROVIDERS: ADMIT Internal Medicine; ATTEND Internal Medicine
PROC: 0BH17EZ Insertion of Endotracheal Airway into Trachea, Via Natural or Artificial Opening (ICD-10-PCS; principal; 2019-10-27)
PROC: 5A1955Z Respiratory Ventilation, Greater than 96 Consecutive Hours (ICD-10-PCS; 2019-10-27)
DX: A41.9 Sepsis, unspecified organism (principal); J96.02 Acute respiratory failure with hypercapnia; J44.1 Chronic obstructive pulmonary disease with (acute) exacerbation; E87.1 Hypo-osmolality and hyponatremia; E87.2 Acidosis; D68.59 Other primary thrombophilia; J84.9 Interstitial pulmonary disease, unspecified; F11.20 Opioid dependence, uncomplicated; I25.10 Atherosclerotic heart disease of native coronary artery without angina pectoris; D64.9 Anemia, unspecified; E86.1 Hypovolemia; K57.30 Diverticulosis of large intestine without perforation or abscess without bleeding; J06.9 Acute upper respiratory infection, unspecified; I50.810 Right heart failure, unspecified; I48.0 Paroxysmal atrial fibrillation; Z78.1 Physical restraint status; I25.2 Old myocardial infarction; Z79.899 Other long term (current) drug therapy
CPT/HCPCS: 36415; 36600; 71045; 80048; 80061; 80305; 80320; 81003; 82375; 82550; 82553; 82805; 83036; 83605; 83735; 83880; 84100; 84145; 84439; 84443; 84478; 84484; 85027; 85379; 87070; 93005; 93306; 93970; 94003; 99291; J0456; J0696; J1650; J1956; J2060; J2250; J2704; J2930; J3105; J3490; J7030; J7040; J7060; J7611; G0480